=== PATIENT | female | born 1975 | race African-American/Black ===

== ENCOUNTER 2019-12-26 15:52 | Emergency (ER) | payer OTHER, SELFPAY ==
--- NOTE | ~2019-12-26 | XR_ITS ---
EXAMINATION: XR chest 2V DATE: 12/26/2019 16:28 INDICATION: Fever and congestion. TECHNIQUE: Frontal and lateral views of the chest were obtained. COMPARISON: Neck CT 12/11/2012 FINDINGS: There are airspace opacities in the lower lung zones. No pleural effusion or pneumothorax. Cardiomegaly is noted. IMPRESSION: 1. Airspace opacities in the lower lung zones, consistent with atelectasis versus pneumonia. 2. Cardiomegaly. Reviewed, dictated and finalized at location A. IMPRESSION: 1. Airspace opacities in the lower lung zones, consistent with atelectasis vers us pneumonia. 2. Cardiomegaly.
--- NOTE | 2019-12-26 15:55 | ED.GENADULT ---
HPI - General Adult General Chief complaint: Upper Respiratory Infection Stated complaint: chest congestion/sob/cough/drainageun Time Seen by Provider: 12/26/19 16:10 Source: patient Mode of arrival: ambulatory Limitations: no limitations History of Present Illness HPI narrative: 44-year-old female patient presents to the [facility] with complaints of cold symptoms for the past week. Patient states that she went to her primary doctor's office last week and was tested for influenza which it was negative at that time but she was given antivirals anyway. Patient states that she completed the antivirals but still is not feeling well. Patient complaining of cough, congestion, shortness of breath and just overall feeling very weak and tired. Patient denies being a smoker. 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 Patient denies any recent travel. Patient denies coming into contact with anybody that has had coded 19 that she is aware of. Patient states she has been taking some Advil Cold and Sinus for her symptoms. Related Data Allergies Allergy/AdvReac Type Severity Reaction Status Date / Time No Known Allergies Allergy Unknown Verified 12/26/19 15:56 Review of Systems Review of Systems: Narrative: CONSTITUTIONAL: Denies fever, chills, or sweats. EYES: Denies visual changes, redness, or discharge. ENT: Denies rhinorrhea, congestion, sore throat, or otalgia. CARDIOVASCULAR: Denies chest pain, palpitations, or edema. RESPIRATORY: Positive cough with dyspnea. GASTROINTESTINAL: Denies abdominal pain, nausea, vomiting, or diarrhea. GENITOURINARY: Denies dysuria or hematuria. SKIN: Denies rash or itching. MUSCULOSKELETAL: Denies back pain, joint pain, or myalgia. NEUROLOGIC: Denies headache, numbness, positive weakness. PSYCHIATRIC: Denies anxiety or depression. PMFSH Social History Social History Gender identity (if verbalized by the patient): Female Comments At the time of my signature I agree with nursing past medical history, surgical, social, and family history. There is no relevant family history pertinent to the presenting complaint. Exam Narrative: Exam Narrative: GENERAL: Well-appearing, well-nourished, and in no acute distress. HEAD: Normocephalic, atraumatic. No tenderness noted to frontal and maxillary sinuses on palpation EYES: PERRLA and EOMI. ENT: Nares clear, no rhinorrhea or epistaxis. Mucous membranes moist. Posterior pharynx with no erythema, tonsil enlargement, exudates or lesions present. Bilateral TMs are clear no erythema or foreign bodies in the canal. NECK: Supple. No lymphadenopathy CHEST: Patient does have slight decreased lung sounds noted but to bilateral lower lobes on auscultation. Patient is clear to upper bilateral lobes. No respiratory distress. Patient able talk in clear complete sentences. HEART: Regular rate and rhythm. No murmur heard. Normal peripheral pulses. ABDOMEN: Soft, nontender, nondistended, normal active bowel sounds. EXTREMITIES: Normal range of motion. No edema. SKIN: Warm, dry, no rash. NEURO: No focal deficits. Alert and oriented x3. Course Reevaluation(s) Reevaluation #1: Discussed with patient that her x-rays are consistent with pneumonia to the lower lobes. Given the fact that she has this findings on x-ray as well as her symptoms of presentation of low-grade fever, chest pain and shortness of breath I am concerned that she could possibly have coded 19. Discussed with her that I did speak with Nicole Christine, our infectious disease control person through [facility] and she informed me that at this time unless she needs admission there is no code with 19 testing available and less she would like to call her primary physician for testing at a private facility. Patient states that she does not have a primary physician at this time. Discussed with patient that at this time her symptoms are mild an
[2019-12-26 16:07] VITALS: BP 120/60; PULSE 100; RESP 16; TEMP 37.8; O2SAT 98
== END 2019-12-26 17:04 | disposition home or self-care (01) ==
PROVIDERS: Emergency Provider Nurse Practitioner Family
DX: J18.9 Pneumonia, unspecified organism (principal); I51.7 Cardiomegaly
CPT/HCPCS: 71046; 99213; G0463

== ENCOUNTER 2020-02-13 14:33 | Emergency (ER) | payer OTHER, SELFPAY ==
[2020-02-13 14:48] VITALS: BP 115/72; PULSE 71; RESP 16; TEMP 36.7; O2SAT 100
--- NOTE | 2020-02-13 14:48 | ED.HA ---
HPI - Headache General Chief Complaint: Headache Stated Complaint: migraine Time Seen by Provider: 02/13/20 14:50 Source: patient and RN notes reviewed Mode of arrival: ambulatory Limitations: no limitations History of Present Illness HPI Narrative: This is a 45 years old female presents to the office for an evaluation of migraine headache for one week. Pain is so much better than it was a week ago however she developed some tingling and numbness on her left side of her face. Pain described as dull and controlled with otc Migraine medication. Denies rash/face injury/trauma. Admits to history of Migraine; however she never has face numbness/tingling sensation in the past. Denies history of shingle. She called her PCP for routine follow up yesterday but did not mention her current symptoms to her doctor. Denies history of autoimmune disease/CVA. Related Data Home Medications Medication Instructions Recorded Confirmed sertraline 50 mg DAILY 02/13/20 02/13/20 Allergies Allergy/AdvReac Type Severity Reaction Status Date / Time No Known Allergies Allergy Unknown Verified 02/13/20 14:42 Review of Systems Review of Systems: Narrative: CONSTITUTIONAL: Denies fever EYES: Denies visual changes ENT: Denies congestion CARDIOVASCULAR: Denies chest pain RESPIRATORY: Denies dyspnea GASTROINTESTINAL: Denies nausea, vomiting, diarrhea. GENITOURINARY: Denies urinary symptoms SKIN: Denies rash MUSCULOSKELETAL: Denies acute back pain/joints pain NEUROLOGIC: Denies lightheaded/dizziness or focal weakness PMFSH Past Medical History Medical History (Updated 02/13/20 @ 15:33 by CARMENZA Olivia) Anxiety Social History Social History Gender identity (if verbalized by the patient): Female Comments At time of signature, I agree with nursing past medical, surgical, social and family history. There is no relevant family history pertinent to the presenting complaint. Exam Narrative: Exam Narrative: GENERAL: This is a well-nourished, well-developed patient, in no apparent distress. EYES: PERRL. EMOI. Sclera clear/white. Vision is grossly intact. EARS: External ears normal, auditory canals clear and without drainage, TMs normal without perforation. Hearing grossly intact. NO TMJ tenderness; however there is clicking noise when she opens/closes her mouth. NOSE: External nose normal with no obvious nasal discharge, nares without redness, no rhinorrhea. THROAT: Mucous membranes moist, posterior pharynx clear. NECK: Neck supple, non-tender without lymphadenopathy, masses or thyromegaly. CARDIOVASCULAR: Regular rate and rhythm without murmurs, gallops, or rubs. RESPIRATORY: Clear to auscultation. Breath sounds equal bilaterally. No wheezes, rales, or rhonchi. GASTROINTESTINAL: Abdomen soft, non-tender, nondistended. Bowel sounds are active. No hepato-splenomegaly, or palpable masses. No guarding. SKIN: warm, intact with no suspicious lesions or rash, good texture and turgor. NEURO: awake, alert, and oriented to person, place and time. There were no obvious focal neurologic abnormalities. Steady gait EXTREMITIES: Normal range of motion. No edema. Arthur Coma Scale Eye Opening: Spontaneous 4 [place] Coma Scale Motor: Obeys Commands 6 [place] Coma Scale Verbal: Oriented 5 Course Vital Signs Vital signs: Vital Signs Temperature 98.1 F 02/13/20 14:48 Pulse Rate 71 02/13/20 14:48 Respiratory Rate 16 02/13/20 14:48 Blood Pressure 115/72 02/13/20 14:48 Pulse Oximetry 100 02/13/20 14:48 Temperature 98.1 F 02/13/20 14:48 Pulse Rate 71 02/13/20 14:48 Respiratory Rate 16 02/13/20 14:48 Blood Pressure 115/72 02/13/20 14:48 Pulse Oximetry 100 02/13/20 14:48 MDM - Headache MDM Narrative Medical decision making narrative: Discharge instructions reviewed with patient, as well as provided in writing per nursing staff. The instructions als
== END 2020-02-13 15:13 | disposition home or self-care (01) ==
PROVIDERS: Emergency Provider Nurse Practitioner; PCP Physician Assistant
DX: R51 Headache (principal); F41.9 Anxiety disorder, unspecified
CPT/HCPCS: 99213; G0463

== ENCOUNTER 2020-12-08 12:02 | Emergency (ER) | payer OTHER, SELFPAY ==
[2020-12-08 12:17] VITALS: BP 106/58; PULSE 68; RESP 16; TEMP 37.1; O2SAT 100
--- NOTE | 2020-12-08 12:30 | ED.CHESTPAIN ---
HPI - Chest Pain General Chief Complaint: Chest Pain Stated Complaint: Tightness of Chest Time Seen by Provider: 12/08/20 12:25 Source: patient and RN notes reviewed Mode of arrival: ambulatory Limitations: no limitations History of Present Illness HPI narrative: 45-year-old female presents to the [facility] with complaints sternal chest pain and pressure, left-sided chest pain(under left breast) and pressure, left upper quadrant pain and pressure for 4 days. Describes it as a heaviness or tightness associated with nausea. Has been using acid reflux medication with no relief. Denies shortness of breath. She denies history of hypertension. States she does have a history of high cholesterol and anxiety. Related Data Home Medications Medication Instructions Recorded Confirmed cyanocobalamin (vitamin B-12) 1,000 mcg IM .Q3W 12/08/20 12/08/20 omeprazole 20 mg PO DAILY 12/08/20 12/08/20 Allergies Allergy/AdvReac Type Severity Reaction Status Date / Time No Known Allergies Allergy Unknown Verified 12/08/20 13:39 Review of Systems Review of Systems: Narrative: CONSTITUTIONAL: Denies fever, chills, or sweats. CARDIOVASCULAR: Reports chest pain. Denies palpitations, or edema. RESPIRATORY: Denies cough or dyspnea. GASTROINTESTINAL: Reports left upper abdominal pain and nausea. Denies vomiting, or diarrhea. GENITOURINARY: Denies dysuria or hematuria. SKIN: Denies rash or itching. MUSCULOSKELETAL: Denies back pain, joint pain, or myalgia. NEUROLOGIC: Denies headache, numbness, or weakness. PSYCHIATRIC: Denies anxiety or depression. Reports a history of anxiety but none currently All other systems reviewed are negative, except as documented in HPI. PMFSH Past Medical History Medical History Anxiety High cholesterol Social History Social History Gender identity (if verbalized by the patient): Female Comments At the time of my signature, I reviewed and agree with the nursing past medical, surgical, social, and family history. There is no relevant family history pertinent to the patient complaint. Exam Narrative: Exam Narrative: GENERAL: This is a well-nourished, well-developed patient, in no apparent distress. HEAD: normocephalic, atraumatic. EYES: PERRL. Sclera clear/white. Vision is grossly intact. EARS: External ears normal. NECK: Neck supple, non-tender without lymphadenopathy, masses or thyromegaly. CARDIOVASCULAR: Regular rate and rhythm without murmurs, gallops, or rubs. RESPIRATORY: Clear to auscultation. Breath sounds equal bilaterally. No wheezes, rales, or rhonchi. GASTROINTESTINAL: Abdomen soft, non-tender, nondistended. SKIN: warm, intact with no suspicious lesions or rash, good texture and turgor. NEURO: awake, alert, and oriented to person, place and time. There were no obvious focal neurologic abnormalities. EXTREMITIES: No clubbing, cyanosis, or edema. BACK: Nontender without deformity. Course Course Emergency Course: Spoke with [facility] at 1232 who accepted transfer to [facility] Offered transfer to [facility] via EMS. Patient prefers to drive herself to the ER. History obtained from patient. Due to being -Swedish obese and high cholesterol, chief complaint of left-sided chest pain under left breast and [id number] Prilosec and heartburn medications not helping the pain discussed with patient the importance of going to the ER for blood work to rule out a cardiac issue. Patient in no acute distress. Vital Signs Vital signs: Vital Signs Temperature 98.7 F 12/08/20 12:17 Pulse Rate 68 12/08/20 12:17 Respiratory Rate 16 12/08/20 12:17 Blood Pressure 106/58 L 12/08/20 12:17 Pulse Oximetry 100 12/08/20 12:17 Temperature 98.7 F 12/08/20 12:17 Pulse Rate 68 12/08/20 12:17 Respiratory Rate 16 12/08/20 12:17 Blood Pressure 106/58 L 12/08/20 12
--- NOTE | 2020-12-08 12:32 | ECG_ITS ---
Measurements Intervals [place] Rate: 62 P: 48 [place]: 154 QRS: 7 QRSD: 92 T: 17 QT: 409 QTc: 416 Interpretive Statements SINUS RHYTHM INCOMPLETE RIGHT BUNDLE BRANCH BLOCK BORDERLINE ECG Electronically Signed On 12-08-2020 13:43:49 CONSUMER SERVICES ADVISOR by Suraj Agosto D.O.
== END 2020-12-08 12:40 | disposition short-term general hospital (02) ==
PROVIDERS: Emergency Provider Nurse Practitioner; PCP Emergency Medicine
DX: R07.9 Chest pain, unspecified (principal); I45.10 Unspecified right bundle-branch block; E78.00 Pure hypercholesterolemia, unspecified
CPT/HCPCS: 93005; 99213; G0463

== ENCOUNTER 2020-12-08 13:00 | Emergency (ER) | payer OTHER, SELFPAY ==
--- NOTE | ~2020-12-08 | XR_ITS ---
EXAMINATION: XR chest 2V EXAM DATE: 12/08/2020 13:36 INDICATION: Midsternal, left-sided chest pain. TECHNIQUE: Frontal and lateral projections of the chest obtained and reviewed. Comparison is made to prior examination from 12/26/2019. FINDINGS: The lungs are clear. There are no pleural effusions. The cardiomediastinal silhouette is within normal limits. There is no pneumothorax suspected. The bones and soft tissues are unremarkab le. IMPRESSION: Normal chest x-ray exam. Reviewed, dictated and finalized at location B. ARDING SPECIALIST IMPRESSION: Normal chest x-ray exam.
--- NOTE | 2020-12-08 13:02 | ECG_ITS ---
Measurements Intervals [place] Rate: 65 P: 39 ND: 152 QRS: 0 QRSD: 99 T: 12 QT: 413 QTc: 431 Interpretive Statements SINUS RHYTHM INCOMPLETE RIGHT BUNDLE BRANCH BLOCK BORDERLINE T WAVE ABNORMALITY- ANT/INF LEADS BORDERLINE ECG Electronically Signed On 12-08-2020 13:44:04 TOMATO PULPER OPERATOR by Suraj Agosto D.O.
[2020-12-08 13:03] VITALS: BP 113/72; PULSE 64; RESP 18; TEMP 36.7; O2SAT 100
--- NOTE | 2020-12-08 13:23 | ED.GENADULT ---
HPI - General Adult General Chief complaint: Chest Pain Stated complaint: chest pain Time Seen by Provider: 12/08/20 13:07 Source: patient History of Present Illness HPI narrative: Patient is a 45 y/o female complaining of intermittent chest pain for last 4 days. She states that her pain is located in mid-sternal are with radiation to left shoulder sometimes. She states that her pain is 6/10. However, she has no pain at this time. She took OTC meds for indigestion, which did not help. She has no vomiting, shortness of breath or sweating. Related Data Home Medications Medication Instructions Recorded Confirmed cyanocobalamin (vitamin B-12) 1,000 mcg IM .Q3W 12/08/20 12/08/20 omeprazole 20 mg PO DAILY 12/08/20 12/08/20 Allergies Allergy/AdvReac Type Severity Reaction Status Date / Time No Known Allergies Allergy Unknown Verified 12/08/20 13:39 Review of Systems Constitutional: Constitutional: Denies chills, Denies fever(s), Denies headache(s) and Denies weakness Eyes: Eyes: Denies blurry vision ENT: Denies headache(s) and Denies neck pain Cardiovascular: Cardiovascular: Reports chest pain and Denies dyspnea Respiratory: Respiratory: Denies cough and Denies dyspnea Gastrointestinal: Gastrointestinal: Denies abdominal pain, Denies diarrhea, Denies nausea and Denies vomiting Genitourinary: Genitourinary: Denies hematuria and Denies dysuria Musculoskeletal: Musculoskeletal: Denies back pain and Denies neck pain Neurologic: Denies headache(s) and Denies weakness [facility] Past Medical History Medical History Anxiety High cholesterol Social History Social History Gender identity (if verbalized by the patient): Female Exam Const: General: no acute distress and well developed Orientation/consciousness: oriented to person, oriented to place, oriented to time and patient oriented x3 HENMT: Head: normocephalic Ears: external ears normal General nose exam: Normal external nose present Eyes: General: appearance normal, both eyes and all related structures Conjunctivae: conjunctivae normal Neck: Neck: normal visual inspection and full ROM Chest: Chest palpation & inspection: normal inspection of the chest and no tenderness Resp: Effort & Inspection: normal respiratory effort Auscultation: clear to auscultation bilaterally Cardio: Rate: regular rate Rhythm: regular rhythm GI: GI Palp: No abdominal tenderness and Yes Soft to palpation Skin: General skin exam: normal color and turgor normal Neuro: General: oriented to person, oriented to place, oriented to time and patient oriented x3 Cognition (Neuro): normal cognition Extrem: General: normal to inspection, full ROM and no pedal edema Psych: Appearance: grossly normal Mental Status: mental status grossly normal Affect: normal affect Course Vital Signs Vital signs: Vital Signs Temperature 36.7 C 12/08/20 13:03 Pulse Rate 64 12/08/20 13:03 Respiratory Rate 18 12/08/20 13:03 Blood Pressure 113/72 12/08/20 13:03 Pulse Oximetry 100 12/08/20 13:03 Temperature 36.7 C 12/08/20 13:03 Pulse Rate 79 12/08/20 17:33 Respiratory Rate 15 12/08/20 17:33 Blood Pressure 106/73 12/08/20 17:33 Pulse Oximetry 98 12/08/20 17:33 Medical Decision Making Vital Signs Vital Signs: Vital Signs Temperature 36.7 C 12/08/20 13:03 Pulse Rate 64 12/08/20 13:03 Respiratory Rate 18 12/08/20 13:03 Blood Pressure 113/72 12/08/20 13:03 Pulse Oximetry 100 12/08/20 13:03 Temperature 36.7 C 12/08/20 13:03 Pulse Rate 79 12/08/20 17:33 Respiratory Rate 15 12/08/20 17:33 Blood Pressure 106/73 12/08/20 17:33 Pulse Oximetry 98 12/08/20 17:33 Lab Data Result diagrams: 12/08/20 13:22 12/08/20 13:22 Labs: Lab Results 12/08/20 12/08/20 12/08/20 Range/Units 13:22 13
[2020-12-08 13:29] LABS: Basophils Percent Auto 0.6 % (0.2-1.2); Eosinophils Absolute Auto 0.1 K/mm3 (0-0.3); Eosinophils Percent Auto 0.9 % (0-4.4); Hematocrit 37.1 % (37.0-47.0); Hemoglobin 12.3 g/dL (12.0-15.0); Immature Granulocyte Absolute 0.01 K/mm3 (0.00-0.031); Immature Granulocyte Percent A 0.2 % (0-0.5); Lymphocytes Absolute Auto 2.44 K/mm3 (0.9-3.2); Lymphocytes Percent Auto 45.4 % (18.3-44.2); Mean Corpuscular HGB Conc 33.2 g/dl (32-36); Mean Corpuscular Hemoglobin 30.2 pg (26-34); Mean Corpuscular Volume 91.2 fl (80-100); Mean Platelet Volume 11.2 fl (7.4-10.4); Monocytes Absolute Auto 0.6 K/mm3 (0.1-0.6); Monocytes Percent Auto 11.7 % (2.6-8.5); Neutrophils Absolute Auto 2.2 K/mm3 (1.3-6.7); Neutrophils Percent Auto 41.2 % (45.5-73.1); Platelet Count Result 241 k/mm3 (150-375); Red Blood Count 4.07 M/mm3 (4.2-5.4); Red Cell Distribution Width 13.9 % (11.5-14.5); White Blood Count 5.4 K/mm3 (4.5-10.0)
--- NOTE | 2020-12-08 13:31 | PC.NURSE ---
Called lab, Rebecca, added on d vlctp [id number]
[2020-12-08] MEDS: ASPIRIN 81 MG CHEWABLE TABLET 324 MG PO (13:33)
[2020-12-08 13:38] VITALS: PULSE 67; RESP 22; O2SAT 100
[2020-12-08 13:39] VITALS: BP 111/68; PULSE 67; RESP 13; O2SAT 100
[2020-12-08 13:41] LABS: Prothrombin Time 13.6 Seconds (11.1-14.7)
[2020-12-08 13:43] LABS: Anion Gap 5 mmol/L (8-16); Blood Urea Nitrogen 12 mg/dL (7-17); Calcium 9.2 mg/dL (8.4-10.2); Carbon Dioxide 24 mmol/L (22-30); Chloride 107 mmol/L (98-107); Estimated CRCL calculation 75 ml/min; Estimated Glomerular Filt Rate > 60; Glucose 88 mg/dL (65-105); Potassium 3.9 mmol/L (3.4-5.0); Sodium 136 mmol/L (137-145)
[2020-12-08 13:44] LABS: D Dimer 0.27 ug/mL (<0.48)
[2020-12-08 13:54] LABS: Troponin I < 0.012 ng/mL (0.000-0.034)
[2020-12-08 14:36] VITALS: PULSE 60
[2020-12-08 15:30] VITALS: BP 95/52; PULSE 61; RESP 16; O2SAT 100
[2020-12-08 16:45] LABS: Troponin I < 0.012 ng/mL (0.000-0.034)
[2020-12-08 17:33] VITALS: BP 106/73; PULSE 79; RESP 15; O2SAT 98
== END 2020-12-08 17:34 | disposition home or self-care (01) ==
PROVIDERS: Emergency Provider Emergency Medicine; PCP Emergency Medicine
DX: R07.2 Precordial pain (principal); E78.00 Pure hypercholesterolemia, unspecified; I45.10 Unspecified right bundle-branch block; R94.31 Abnormal electrocardiogram [ECG] [EKG]
CPT/HCPCS: 36415; 71046; 80048; 84484; 85025; 85380; 85610; 85730; 93005; 99284; A9270

== ENCOUNTER 2020-12-11 07:24 | Outpatient (CLI) | payer OTHER, SELFPAY ==
--- NOTE | ~2020-12-11 | MM_ITS ---
EXAMINATION: MM screening [facility] BI w max HISTORY: Screening mammogram TECHNIQUE: Craniocaudal and mediolateral oblique 3-D tomosynthesis images were obtained and synthetic 2-D images were generated. CAD analysis was submitted and interpreted. COMPARISON: 11/28/2018, 05/16/2017 bilateral digital screening mammogram examinations BREAST PARENCHYMAL COMPOSITION: The breasts are heterogeneously dense, which may obscure small masses . FINDINGS: There is no evidence of suspicious mass, calcification, or architectural distortion to sugg est malignancy in either breast. There has been no suspicious interval change. IMPRESSION: 1. No mammographic evidence of malignancy. 2. Recommend routine screening mammography in one year. BI-RADS Category 1: Negative Reviewed, dictated and finalized at location A. INSTALLER
== END 2020-12-11 07:25 | disposition home or self-care (01) ==
PROVIDERS: PCP Emergency Medicine; Visit Provider Emergency Medicine
DX: Z12.31 Encounter for screening mammogram for malignant neoplasm of breast (principal)
CPT/HCPCS: 77063; 77067

== ENCOUNTER 2021-09-06 11:06 | Emergency (ER) | payer OTHER, SELFPAY ==
--- NOTE | 2021-09-06 11:12 | ED.URI ---
HPI - URI/Sore Throat General Chief Complaint: Extremity Injury, Lower Stated Complaint: right knee/calf pain Time Seen by Provider: 09/06/21 11:12 Source: patient and RN notes reviewed History of Present Illness HPI Narrative: Patient is a 46-year-old female who presents the urgent care with complaints of pain behind the right knee that radiates down the right calf. Patient states she noticed it approximately 1 week or so. Patient has recently seen a new orthopedic at [facility] for steroid injections into the knee. Patient did not mention to the orthopedic her pain behind the knee. Patient states that it comes and goes and is normally more painful when she wakes up in the morning. Patient has not taken anything [id number] for her pain. No other acute complaints. Denies of any injury. No distress noted. Patient aware of the plan of care. Some parts of this dictation were generated by voice recognition software and may contain typographical and/or grammatical inaccuracies. Related Data Allergies Allergy/AdvReac Type Severity Reaction Status Date / Time No Known Allergies Allergy Unknown Verified 09/06/21 11:26 Review of Systems Review of Systems: CONSTITUTIONAL: Denies fever, chills, or sweats. EYES: Denies visual changes, redness, or discharge. ENT: Denies rhinorrhea, congestion, sore throat, or otalgia. CARDIOVASCULAR: Denies chest pain, palpitations, or edema. RESPIRATORY: Denies cough or dyspnea. GASTROINTESTINAL: Denies abdominal pain, nausea, vomiting, or diarrhea. GENITOURINARY: Denies dysuria or hematuria. SKIN: Denies rash or itching. MUSCULOSKELETAL: Reports of pain behind the right knee radiating down the right calf NEUROLOGIC: Denies headache, numbness, or weakness. All other systems reviewed are negative, except as documented in HPI. PMFSH Past Medical History Medical History Anxiety High cholesterol Social History Social History Gender identity (if verbalized by the patient): Female Comments At the time of my signature, I reviewed and agree with the nursing past medical, surgical, social, and family history. There is no relevant family history pertinent to the patient complaint. Exam Narrative: GENERAL: This is a well-nourished, well-developed patient, in no apparent distress. HEAD: normocephalic, atraumatic. EYES: PERRL. Sclera clear/white. Vision is grossly intact. EARS: External ears normal NOSE: External nose normal with no obvious nasal discharge, nares without redness, no rhinorrhea. THROAT: Mucous membranes moist NECK: Neck supple CARDIOVASCULAR: Regular rate and rhythm without murmurs, gallops, or rubs. RESPIRATORY: Clear to auscultation. Breath sounds equal bilaterally. No wheezes, rales, or rhonchi. SKIN: warm, intact with no suspicious lesions or rash, good texture and turgor. NEURO: awake, alert, and oriented to person, place and time. There were no obvious focal neurologic abnormalities. EXTREMITIES: No bilateral lower extremity edema. Positive strong right pedal pulse and capillary refill less than 2 seconds. Range of motion to right lower extremity within normal limits. Palpable, tender, Montes De Oca's cyst to the posterior medial aspect of the right knee. Course Vital Signs Vital signs: Vital Signs Temperature 98.8 F 09/06/21 11:19 Pulse Rate 79 09/06/21 11:19 Respiratory Rate 16 09/06/21 11:19 Blood Pressure 102/63 09/06/21 11:19 Pulse Oximetry 99 09/06/21 11:19 Temperature 98.8 F 09/06/21 11:19 Pulse Rate 79 09/06/21 11:19 Respiratory Rate 16 09/06/21 11:19 Blood Pressure 102/63 09/06/21 11:19 Pulse Oximetry 99 09/06/21 11:19 Reviewed MDM - URI/Sore Throat MDM Narrative Medical decision making narrative: It is highly likely that you have a Montes De Oca cyst behind the right knee. These typically do not need any surgical interventio
[2021-09-06 11:19] VITALS: BP 102/63; PULSE 79; RESP 16; TEMP 37.1; O2SAT 99
== END 2021-09-06 11:30 | disposition home or self-care (01) ==
PROVIDERS: Emergency Provider Nurse Practitioner Family; PCP Emergency Medicine
DX: M71.21 Synovial cyst of popliteal space [Baker], right knee (principal); E78.00 Pure hypercholesterolemia, unspecified
CPT/HCPCS: 99212; G0463

== ENCOUNTER → 2021-09-30 08:51 | Outpatient (CLI) | payer OTHER, SELFPAY ==
[2021-09-30 21:05] LABS: SARS-CoV-2 RNA PCR Negative
== END ==
PROVIDERS: PCP Emergency Medicine; Visit Provider Emergency Medicine
DX: R68.89 Other general symptoms and signs (principal); Z20.822 Contact with and (suspected) exposure to COVID-19
CPT/HCPCS: C9803; U0003; U0005

== ENCOUNTER 2022-01-01 07:49 | Outpatient (CLI) | payer OTHER, SELFPAY ==
--- NOTE | ~2022-01-01 | MM_ITS ---
EXAMINATION: MM screening [facility] BI w max HISTORY: Screening mammogram TECHNIQUE: Craniocaudal and mediolateral oblique 3-D tomosynthesis images were obtained and synthetic 2-D images were generated. CAD analysis was submitted and interpreted. COMPARISON: 12/11/2020, 11/28/2018, 05/16/2017 BREAST PARENCHYMAL COMPOSITION: The breasts are heterogeneously dense, which may obscure small masses . FINDINGS: There is no suspicious mass, calcification, or architectural distortion to suggest malignan cy in either breast. There has been no suspicious interval change. IMPRESSION: 1. No mammographic evidence of malignancy. 2. Recommend routine screening mammography in one year. BI-RADS Category 1: Negative Reviewed, dictated and finalized at location A.
== END 2022-01-01 07:50 | disposition home or self-care (01) ==
LOC: ANHIMG 07:51
PROVIDERS: PCP Emergency Medicine
DX: Z12.31 Encounter for screening mammogram for malignant neoplasm of breast (principal)
CPT/HCPCS: 77063; 77067

== ENCOUNTER 2025-04-19 17:16 | Emergency (ER) | payer OTHER, SELFPAY ==
[2025-04-19 17:33] VITALS: BP 101/61; PULSE 69; RESP 18; TEMP 36.5; O2SAT 100
--- NOTE | 2025-04-19 17:33 | ED_ITS ---
HPI - Headache General Chief Complaint: Headache Stated Complaint: headache for three days Time Seen by Provider: 04/19/25 17:23 Source: patient Mode of arrival: ambulatory Limitations: no limitations History of Present Illness HPI Narrative: Patient is a 50-year-old female who presents with headache for 3 days. Patient has had similar episode 5 years ago when she was under lot of stress at work. 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 Patient states ibuprofen does pain but never fully goes away. Pain is primarily on the left side of her head with tingling sensation when the pain is at it's peak. This is the same presentation from 2019. Denies any loss of vision, numbness, tingling or weakness to extremities. Reports her pain is 6/10 and is a dull constant ache, also has photosensitivity. Denies any upper respiratory symptoms, or facial injury/trauma. Denies any history of CVA. Related Data Allergies Allergy/AdvReac Type Severity Reaction Status Date / Time No Known Allergies Allergy Unknown Verified 04/19/25 17:35 Review of Systems Review of Systems: All systems reviewed & are unremarkable except as noted in HPI and below Constitutional: Constitutional: Denies body ache(s), Denies chills, Denies fatigue, Denies fever(s), Reports headache(s), Denies malaise and Denies weakness Eyes: Eyes: Denies blurry vision, Denies irritation and Denies loss of vision ENT: Denies otalgia, Reports headache(s), Denies nasal discharge, Denies sinus pain and Denies sore throat Cardiovascular: Cardiovascular: Denies chest pain, Denies irregular heart rhythm and Denies dyspnea Respiratory: Respiratory: Denies dyspnea Gastrointestinal: Gastrointestinal: Denies abdominal pain, Denies melena, Denies hematochezia, Denies diarrhea, Denies nausea and Denies vomiting Musculoskeletal: Musculoskeletal: Denies back pain, Denies myalgias and Denies arthralgias Integumentary/Breasts: Skin/Breast: Denies pruritus and Denies rash Neurologic: Reports headache(s), Denies loss of vision and Denies weakness Psychiatric: Psychiatric: Reports no additional psychiatric complaints Endocrine: Endocrine: Denies fatigue PMFSH Past Medical History Medical History High cholesterol Anxiety Social History Social History Gender identity (if verbalized by the patient): Female Comments At time of signature, agree with nursing past medical, surgical, social and family history. There is no relevant family history pertinent to the presenting complaint. Exam Const: General: cooperative, healthy appearing, comfortable, no acute distress and well nourished Nutritional Appearance: well nourished Orientat ion/consciousness: patient oriented x3 Limitations: no limitations HENMT: Head: normal to inspection, normocephalic and atraumatic Ears: hearing grossly normal bilaterally and external ears normal Face/Nose/Sinus: Normal external nose present, normal facial exam and face symmetric Face and sinus: normal facial exam and face symmetric Mouth: Yes lip normal Eyes: General: appearance normal, both eyes and all related structures Alignment and Position: alignment normal and position normal Periorbital: periorbital findings normal Eyelids: eyelids normal Pupils: Equal, round and reactive pupils present EOM: EOMs intact bilaterally Neck: Neck: normal visual inspection, full ROM and supple Chest: Chest palpation & inspection: normal inspection of the chest Resp: Effort & Inspection: normal respiratory effort and able to speak in complete sentences Auscultation: clear to auscultation bilaterally Cardio: Rate: regular rate Rhythm: regular rhythm Heart sounds: S1 normal heart sound present and S2 normal heart sound present GI: Inspection: normal to inspection Skin: General skin exam: normal color and no rashes or lesions noted Neuro: General: patient oriented x3 and moves all extremities Cranial nerves: Yes CN's II-XII intact bilaterally and Yes Equal, round and reactive pupils present Cognition (Neuro): normal cognition Speech: normal speech Gait exam (Neuro): Normal gait present Motor exam (neuro): 5/5 motor strength present throughout, Normal motor muscle tone present throughout and Motor abnormalities not present Sensory Exam: normal sensation Extrem: General: normal to inspection, full ROM and no edema Psych: Appearance: grossly normal and well kempt Mental Status: mental status grossly normal Speech and movement: Normal speech and movement present Affect: normal affect Attitude: cooperative Thought process: Normal thought process present Course Course Emergency Course: Patient is aware of diagnosis, understands and agrees to treatment plan. Anticipatory guidance given. Patient agrees to follow-up as directed and is aware of reasons to seek care at the emergency department. Portions of this record may have been created with voice recognition software Level of Care: Express Care Visit Vital Signs Vital signs: Reviewed MDM - Headache MDM Narrative Medical decision making narrative: Patient presenting for migraine headache. Given Toradol and Benadryl. Reassessment 20 minutes later patient reports significant relief of symptoms 11/12. Patient states she does feel comfortable driving home stating she only lives a few blocks. Pt well hydrated appearing, in no respiratory distress, hemodynamically stable, neuro intact. Recommend supportive care. The patient is stable at time of discharge the clinical impression was discussed and the patient was given the opportunity to ask questions, which were addressed as completely as possible given the information available at present. Anticipatory guidance and return to care precautions were discussed and the importance of primary care follow-up was stressed and encouraged. The patient voiced understanding of the plan, indications to return, and the need for follow-up. Exam findings show no acute concerns or changes Patient is appropriate for outpatient treatment and follow-up. Differential Diagnosis Differential diagnosis: Likely migraine, tension headache, subarachnoid hemorrhage and headache Medical Records Attestation: I reviewed the patient's medical records. Discharge Plan Discharge Clinical Impression: Migraine Patient Disposition: Home Condition: Stable Instructions: Migraine Headache (ED) Additional Instructions: Take Zofran as needed for nausea. Take Benadryl at night For pain, you may take: Tylenol 650-1000mg by mouth every 4-6 hours. Do not exceed 4000mg in 24 hours. Advil (Ibuprofen) 600 mg by mouth every 6 hours. Do not exceed 2400mg in 24 hours. Take Motrin alternating with Tylenol for pain and fever alternating every 3 hours. 8 AM: Tylenol 11 AM: Ibuprofen 2 PM: Tylenol 5 PM: Ibuprofen 8 PM: Tylenol 11 PM: Ibuprofen 2 AM: Tylenol 5 AM: Ibuprofen Increase fluids, decrease caffeine, limit screen time Follow-up with PCP as needed or if you have worsening headache, vision changes, dizziness my persistent vomiting go to the emergency department. Patient Language: [place] Prescriptions: New ibuprofen 600 mg tablet 600 mg PO TID PRN (Reason: pain) Qty: 30 0RF ondansetron 4 mg tablet,disintegrating 4 mg PO Q6-8H PRN (Reason: nausea and vomiting) Qty: 7 0RF Follow-up/Referrals: Farooq Cm MD [Physician] - 3 Days (Establish care) Time of Disposition: 19:06
[2025-04-19] MEDS: diphenhydrAMINE HCl CAP 25 MG CAPSULE 50 MG PO (18:35)
[2025-04-19] MEDS: KETOROLAC 30 MG/ML VIAL (*BKC) IM (18:38)
== END 2025-04-19 19:09 | disposition home or self-care (01) ==
PROVIDERS: Emergency Provider Nurse Practitioner Family
DX: G43.909 Migraine, unspecified, not intractable, without status migrainosus (principal); E78.00 Pure hypercholesterolemia, unspecified
CPT/HCPCS: 96372; 99213; A9270; G0463; J1885